=== PATIENT | female | born 1965 | race Hispanic/Latino ===

== ENCOUNTER → 2018-11-09 | Outpatient (CLI) | payer BC | END | disposition home or self-care (01) | LOC: RAH 07:29 | PROVIDERS: ATTEND Obstetrics & Gynecology | DX: Z12.31 Encounter for screening mammogram for malignant neoplasm of breast (principal) | CPT/HCPCS: 77067 ==

== ENCOUNTER → 2020-08-10 | Outpatient (CLI) | payer BC | END | disposition home or self-care (01) | LOC: RAH 08-07 10:15 | PROVIDERS: ATTEND Family Medicine | DX: Z12.31 Encounter for screening mammogram for malignant neoplasm of breast (principal) | CPT/HCPCS: 77067 ==

== ENCOUNTER → 2022-04-22 | Outpatient (CLI) | payer BC | END | disposition home or self-care (01) | LOC: RAH 07:39 | PROVIDERS: ATTEND Physician Assistant | DX: Z12.31 Encounter for screening mammogram for malignant neoplasm of breast (principal) | CPT/HCPCS: 77067 ==

== ENCOUNTER → 2024-06-17 | Outpatient (CLI) | payer BC ==
--- NOTE | 2024-06-20 10:51 | HMCIMG ---
Exam Type: MAMMO DX BILATERAL Clinical Information: MASTODYNIA Comparison: June 14, 2023 TECHNIQUE: Mammogram was performed with CC and MLO projections. CAD was performed. CAD shows no worrisome regions. FINDINGS: The breasts are heterogeneously dense, which may obscure small masses.. No dominant mass or suspicious microcalcification identified. There is no nipple retraction or skin thickening. Benign-appearing calcifications are seen. IMPRESSION: 1. No mammographic signs of malignancy. . 2. Routine follow-up recommended. BI-RADS: CATEGORY 2: BENIGN FINDINGS Note: A negative x-ray should not delay biopsy if a dominant or clinically suspicious mass is present, since 8-10% of cancers are not identified by mammography. Dense breasts, particularly, may obscure an underlying neoplasm.
--- NOTE | 2024-06-20 12:05 | HMCIMG ---
Left BREAST ULTRASOUND: HISTORY: Trauma COMPARISON: Mammogram June 17, 2024 FINDINGS: The breast and axilla were evaluated. No cysts or solid masses are identified. Benign-appearing axillary lymph node. Region of interest 7:00 position shows no underlying lesions. Impression: Normal left breast ultrasound. Routine screening mammogram in 1 year recommended. BI-RADS: CATEGORY 1: NEGATIVE Note: A negative x-ray should not delay biopsy if a dominant or clinically suspicious mass is present, since 8-10% of cancers are not identified by mammography. Thank you for allowing me to participate in this patient's care. If I can be of further assistance, please do not hesitate to call. A negative report should not delay biopsy if a clinically suspicious mass is present. Some cancers are not identified by imaging studies.
== END | disposition home or self-care (01) ==
LOC: RAH 12:47
PROVIDERS: ATTEND Family Medicine
DX: R92.333 Mammographic heterogeneous density, bilateral breasts (principal); N64.4 Mastodynia; R92.1 Mammographic calcification found on diagnostic imaging of breast; R59.0 Localized enlarged lymph nodes
CPT/HCPCS: 76641; 77066